=== PATIENT | female | born 1995 | race Caucasian/White ===

== ENCOUNTER 2017-11-08 18:24 | Emergency (ER) | payer OTHER ==
[2017-11-08 18:33] VITALS: BP 109/76; PULSE 118; RESP 20; TEMP 98.1; O2SAT 93
--- NOTE | 2017-11-08 19:07 | EDPHY ---
H & P Stated Complaint: right foot pain-stepped on glass a couple weeks ago? Time Seen by Provider: 11/08/17 18:57 HPI/ROS: CHIEF COMPLAINT: Right foot pain HISTORY OF PRESENT ILLNESS: Patient is a 22-year-old female who comes to the emergency department with right foot pain. She states that she thinks she stepped on a piece of glass or rock a week ago. She does not remember but she was walking barefoot. She states that she wore sandals for few days but has not been wearing any shoes for the last 2 days because "my friends stole them". She denies recent trauma. She denies fevers. She denies ankle or knee pain. The pain is just at the base of her 2nd digit on the palmar aspect. REVIEW OF SYSTEMS: Constitutional: denies: chills, fever, recent illness, recent injury EENTM: denies: blurred vision, double vision, nose congestion Respiratory: denies: cough, shortness of breath Cardiac: denies: chest pain, irregular heart rate, lightheadedness, palpitations Gastrointestinal/Abdominal: denies: abdominal pain, diarrhea, nausea, vomiting, blood streaked stools Genitourinary: denies: dysuria, frequency, hematuria, pain Musculoskeletal: denies: joint pain, muscle pain Skin: See HPI Neurological: denies: headache, numbness, paresthesia, tingling, dizziness, weakness Hematologic/Lymphatic: denies: blood clots, easy bleeding, easy bruising Immunologic/allergic: denies: HIV/AIDS, transplant EXAM: GENERAL: Well-appearing, well-nourished and in no acute distress. HEAD: Atraumatic, normocephalic. EYES: Pupils equal round and reactive to light, extraocular movements intact, sclera anicteric, conjunctiva are normal. ENT: TMs normal, nares patent, oropharynx clear without exudates. Moist mucous membranes. NECK: Normal range of motion, supple without lymphadenopathy or JVD. LUNGS: Breath sounds clear to auscultation bilaterally and equal. No wheezes rales or rhonchi. HEART: Regular rate and rhythm without murmurs, rubs or gallops. ABDOMEN: Soft, nontender, normoactive bowel sounds. No guarding, no rebound. No masses appreciated. BACK: No CVA tenderness, no spinal tenderness, step-offs or deformities EXTREMITIES: Patient has a small abscess verses blister with surrounding erythema to the palmar aspect of her right foot. It is at the base of the 2nd MTP. It is tender and raised. NEUROLOGICAL: Cranial nerves II through XII grossly intact. Normal speech, normal gait. 5/5 strength, normal movement in all extremities, normal sensation PSYCH: Normal mood, normal affect. SKIN: Warm, dry, normal turgor, no visible rashes or lesions. Source: Patient Exam Limitations: No limitations - Personal History LMP (Females 10-55): 1-7 Days Ago Current Tetanus/Diphtheria Vaccine: Yes Current Tetanus Diphtheria and Acellular Pertussis (TDAP): Yes Tetanus Vaccine Date: < 10 years - Medical/Surgical History Hx Asthma: No Hx Chronic Respiratory Disease: No Hx Diabetes: No Hx Cardiac Disease: No Hx Renal Disease: No Hx Cirrhosis: No Hx Alcoholism: No Hx HIV/AIDS: No Hx Splenectomy or Spleen Trauma: No Other PMH: denies - Family History Significant Family History: No pertinent family hx - Social History Smoking Status: Current every day smoker Alcohol Use: Occasionally Drug Use: Marijuana Constitutional: Initial Vital Signs Temperature (C) 36.7 C 11/08/17 18:31 Heart Rate 118 H 11/08/17 18:31 Respiratory Rate 20 11/08/17 18:31 Blood Pressure 109/76 11/08/17 18:31 O2 Sat (%) 93 11/08/17 18:31 O2 Delivery Mode Room Air Allergies/Adverse Reactions: No Known Allergies Allergy (Verified 11/08/17 18:30) Home Medications: Medication Instructions Recorded Cephalexin [Keflex] 500 mg PO TID #21 cap 11/08/17 Medical Decision Making Procedures: Procedure: Abscess drainage. The patient's wound on right foot. I obtained verbal consent from the patient to un roof the infection who was informed about the possibility of bleeding and pain. The wound was incised with an 11 blade scalpel and small amount of purulence drainage was expressed. I small glass foreign body was removed. I irrigated the wound. The patient tolerated the procedure well. The procedure was performed by myself. ED Course/Re-evaluation: Piece of glass is removed. I will start her on Keflex because of the surrounding erythema and slight streaking. She is happy with this plan. Her wound was cleaned and dressed. We discussed the importance of wearing shoes. She states that she can possum from her friend. Will give her socks. Discussed indications for returning. Differential Diagnosis: Partial list of the Differential diagnosis considered include but were not limited to; foreign body, abscess, blister and although unlikely based on the history and physical exam, I also considered tendon injury, joint infection, osteomyelitis. I discussed these differential diagnoses and the plan with the patient as well as the usual and expected course. The patient understands that the diagnosis is provisional and that in medicine we are not always correct and that further workup is often warranted. Usual and customary warnings were given. All of the patient's questions were answered. The patient was instructed to return to the emergency department should the symptoms at all worsen or return, otherwise to followup with the physician as we discussed. - Data Points Medications Given: Discontinued Medications Cephalexin HCl (Keflex) 500 mg PO EDNOW ONE PRN Reason: Protocol Stop: 11/08/17 19:41 Last Admin: 11/08/17 19:52 Dose: 500 mg Departure - Departure Disposition: Home, Routine, Self-Care Clinical Impression: Penetrating foreign body of skin of right foot Qualifiers: Encounter type: initial encounter Qualified Code(s): S91.341A - Puncture wound with foreign body, right foot, initial encounter Condition: Fair Instructions: Soft Tissue Foreign Body (ED) Referrals: Nii ABDALLA [Primary Care Provider] - 2-3 days, call for appt. Prescriptions: Cephalexin [Keflex] 500 mg PO TID #21 cap
[2017-11-08] MEDS ORDERED: CEPHALEXIN 500 MG CAP PO ONE (19:40)
== END 2017-11-08 20:23 | disposition home or self-care (01) ==
DX: S91.341A Puncture wound with foreign body, right foot, initial encounter (principal); F17.200 Nicotine dependence, unspecified, uncomplicated; W25.XXXA Contact with sharp glass, initial encounter

== ENCOUNTER 2017-12-31 07:43 | Emergency (ER) | payer SELFPAY ==
--- NOTE | 2017-12-31 08:10 | EDPHY ---
General Time Seen by Provider: 12/31/17 08:03 Narrative: CHIEF COMPLAINT: Fall, left rib pain HISTORY OF PRESENT ILLNESS: Patient presents with complaints of left rib pain status post fall. She said she slipped in the shower 2 weeks ago, striking her left ribs on the side of the tub. She said she also lost consciousness at the. She did not seek any medical attention until today. She has moderate to severe pain on the left anterior ribs below her breast. Worse with palpation,, inspiration. She reports no position of comfort. No shortness of breath or cough that she does have difficulty taking a deep breath due to the pain. No fever. No extremity pain. No headache, neck pain, abdominal pain or injuries elsewhere. No other associated complaints or modifying factors. PCP: currently none REVIEW OF SYSTEMS: Ten systems reviewed and are negative unless otherwise noted in the HPI PAST MEDICAL HISTORY: Uncomplicated medical history. Currently being treated for infected wisdom teeth eruption with planned extraction after antibiotic therapy PAST SURGICAL HISTORY: No recent surgeries SOCIAL HISTORY: Nonsmoker. Lives here independently. Currently looking for employment FAMILY HISTORY: Noncontributory EXAMINATION General Appearance: Alert, no distress HEENT: Normocephalic and atraumatic. Pupils equal round reactive. EOM symmetric. Neck: Supple nontender. No midline tenderness. No crepitus. No step-off or deformity. Painless range in all planes. Cardiovascular: Tachycardic rate at 108 beats per minute. Regular rhythm. No murmur. Symmetric radial pulses 2+. Respiratory: Splinting with inspiration. There is tenderness of the left anterior ribs without crepitus or paradoxical movements. The lungs are auscultated in all cortes. Neurological: GCS 15. A&O, sensory symmetric, strength is 5/5 in upper and lower extremity symmetrically. Skin: Warm and dry, multiple tattoos. Extremities: Nontender, no pedal edema. Moving all 4 extremities spontaneously and symmetrically Psychiatric: Mood and affect normal DIFFERENTIAL DIAGNOSES: Including but not limited to rib contusion, rib fracture, strain, sprain, contusion, PE, pulmonary contusion, pneumonia, atelectasis MDM: 8:10 a.m. Blunt trauma to the left ribs 2 weeks ago with tenderness of the anterior axillary line. She does exhibit some splinting with inspiration. There is no ecchymosis or paradoxical movements. Her lungs are auscultated in all cortes. I have ordered chest x-ray as the patient would like to know if she broke a rib or not. I discussed the risks, benefits and alternatives of clinical diagnosis versus radiation exposure and she would like to proceed with the x-ray. 9:00 a.m. Patient re-evaluated. The x-ray of the chest has been read as negative by radiologist for any acute fracture abnormality. At this time the patient mention that she is also concern for the possibility of sexually transmitted infection. She says she has had some discharge and some mild swelling of her labia. She does not want a pelvic exam but she does want to be tested for sexually transmitted infection. She will provide urine sample for this. Additionally her heart rate remains tachycardic. While her pain does appear to be reproducible, she is perc positive and does have recent travel, thus I have ordered a D-dimer to rule out PE. She was at 1st reluctant to have the IV placed, but after further discussion she is now comfortable this plan. 10:00 a.m. D-dimer is negative. CBC is unremarkable. HCG negative. Re-evaluated the patient. I discussed the negative D-dimer. She is still not been able to urinate, thus we will continue IV fluid. 10:50 a.m. Patient is still unable to provide a urine sample 11:40 a.m. Patient has provide a urine sample. I will treat her empirically with Rocephin and Zithromax and request. I have also provided prescription for Flagyl for the possibility of bacterial vaginosis. She does not want a pelvic exam. She would like to be discharged home. I do feel she is stable for discharge home. We discussed anti-inflammatories and muscle relaxant for the left rib injury. We discussed ED precautions for abdominal pain, pelvic pain or fever. She is comfortable this plan and has instructions to call the emergency department tomorrow for the laboratory results regarding the gonorrhea and chlamydia test. I instructed her to follow up with health department should she wish to have any further STI testing. SUPERVISION: Patient was independently examined, but I discussed the case with my secondary supervising physician Dr. Castro ED Precautions: Worsening pain. Erythema, edema, cyanosis, pallor, paresthesia or anesthesia. - Diagnostics Imaging Results: Imaging Impressions Chest X-Ray 12/31/17 08:11 Impression: No post traumatic abnormality identified. - History Smoking Status: Former smoker - Objective Vital Signs: Initial Vital Signs Temperature (C) 98.6 F 12/31/17 07:50 Heart Rate 128 H 12/31/17 07:50 Respiratory Rate 16 12/31/17 07:50 Blood Pressure 101/75 12/31/17 07:50 O2 Sat (%) 93 12/31/17 07:50 O2 Delivery Mode Room Air Allergies/Adverse Reactions: No Known Allergies Allergy (Verified 12/31/17 07:49) Home Medications: Medication Instructions Recorded Cyclobenzaprine [Flexeril 10 MG 10 mg PO TID PRN #15 tab 12/31/17 (*)] Penicillin VK 12/31/17 metroNIDAZOLE [Flagyl 500 mg (*)] 500 mg PO BID #14 tab 12/31/17 Laboratory Results: Laboratory Results 12/31/17 09:19 12/31/17 12/31/17 12/31/17 09:35 09:35 09:19 WBC RBC Hgb Hct MCV MCH MCHC RDW Plt Count D-Dimer Beta HCG, Qual NEGATIVE Urine Color JELANI Urine Appearance MODERATELY TURBID Urine pH 5.0 (5.0-7.5) Ur Specific [place] 1.025 (1.002-1.030) Urine Protein NEGATIVE (NEGATIVE) Urine Ketones NEGATIVE (NEGATIVE) Urine Blood NEGATIVE (NEGATIVE) Urine Nitrate NEGATIVE (NEGATIVE) Urine Bilirubin NEGATIVE (NEGATIVE) Urine Urobilinogen 4.0 EU H EU (0.2-1.0) Ur Leukocyte Esterase TRACE H (NEGATIVE) Urine RBC 1-3 /hpf /hpf (0-3) Urine WBC 3-5 /hpf H /hpf (0-3) Ur Epithelial Cells 1+ /lpf /lpf (NONE-1+) Hyaline Casts 1-5 /lpf /lpf (0-1) Urine Mucus 4+ /lpf H /lpf (NONE-1+) Urine Glucose NEGATIVE (NEGATIVE) N.gonorrhoeae RNA (TMA) Pending 12/31/17 12/31/17 09:19 09:19 WBC 3.59 10^3/uL L 10^3/uL (3.80-9.50) RBC 4.42 10^6/uL 10^6/uL (4.18-5.33) Hgb 13.9 g/dL g/dL (12.6-16.3) Hct 42.6 % % (38.0-47.0) MCV 96.4 fL fL (81.5-99.8) MCH 31.4 pg pg (27.9-34.1) MCHC 32.6 g/dL g/dL (32.4-36.7) RDW 13.8 % % (11.5-15.2) Plt Count 385 10^3/uL 10^3/uL (150-400) D-Dimer 0.43 ug/mLFEU ug/mLFEU (0.00-0.50) Beta HCG, Qual Urine Color Urine Appearance Urine pH Ur Specific [place] Urine Protein Urine Ketones Urine Blood Urine Nitrate Urine Bilirubin Urine Urobilinogen Ur Leukocyte Esterase Urine RBC Urine WBC Ur Epithelial Cells Hyaline Casts Urine Mucus Urine Glucose N.gonorrhoeae RNA (TMA) Medications Given: Discontinued Medications Azithromycin (Zithromax) 1,000 mg PO EDNOW ONE PRN Reason: Protocol Stop: 12/31/17 11:45 Last Admin: 12/31/17 11:50 Dose: 1,000 mg Ceftriaxone Sodium (Rocephin Im Syringe) 250 mg IM ONCE ONE PRN Reason: Protocol Stop: 12/31/17 11:45 Last Admin: 12/31/17 12:15 Dose: 250 mg Sodium Chloride (Ns) 1,000 mls @ 0 mls/hr IV EDNOW ONE; Wide Open PRN Reason: Protocol Stop: 12/31/17 09:07 Last Admin: 12/31/17 09:25 Dose: 1,000 mls Sodium Chloride (Ns) 1,000 mls @ 0 mls/hr IV EDNOW ONE; Wide Open PRN Reason: Protocol Stop: 12/31/17 10:23 Last Admin: 12/31/17 10:26 Dose: 1,000 mls Departure - Departure Disposition: Home, Routine, Self-Care Clinical Impression: Vulvodynia Contusion of rib on left side Qualifiers: Encounter type: initial encounter Qualified Code(s): S20.212A - Contusion of left front wall of thorax, initial encounter Condition: Good Instructions: Cyclobenzaprine (By mouth), Metronidazole (By mouth), Sexually Transmitted Diseases (ED), Safe Sex (ED), Rib Contusion (ED) Additional Instructions: 1. Aleve [id number], 2 pills by mouth every 12 hr for the next 7-10 days and stop 2. Flexeril as prescribed as needed for left-sided rib pain and muscle spasm 3. Flagyl as prescribed to completion 4. You have pending test regarding your urine samples. Please call us Tuesday or Tuesday for the results of these test at [phone] Referrals: NONE *PRIMARY CARE P,. [Primary Care Provider] - As per Instructions Naseem Flores MD [place] [place] - As per Instructions Prescriptions: Cyclobenzaprine [Flexeril 10 MG (*)] 10 mg PO TID PRN #15 tab PRN Reason: Spasms metroNIDAZOLE [Flagyl 500 mg (*)] 500 mg PO BID #14 tab
[2017-12-31] MEDS ORDERED: NS 1,000 ML IV ONE ×2 (09:06→10:22)
[2017-12-31] MEDS ORDERED: AZITHROMYCIN 250 MG TAB PO ONE (11:44)
[2017-12-31 12:14] VITALS: BP 133/75
== END 2017-12-31 12:28 | disposition home or self-care (01) ==
DX: S20.212A Contusion of left front wall of thorax, initial encounter (principal); E86.9 Volume depletion, unspecified; N94.819 Vulvodynia, unspecified; Z87.891 Personal history of nicotine dependence; W18.2XXA Fall in (into) shower or empty bathtub, initial encounter; Y99.8 Other external cause status; Y93.89 Activity, other specified
CPT/HCPCS: J0696

== ENCOUNTER 2018-01-25 20:08 | Emergency (ER) | payer OTHER ==
[2018-01-25] MEDS ORDERED: NS 1,000 ML IV ONE ×2 (20:09→21:22)
[2018-01-25] MEDS ORDERED: LORazepam 1 MG TAB PO ONE (20:09)
--- NOTE | 2018-01-25 20:14 | EDPHY ---
General - History Smoking Status: Former smoker Time Seen by Provider: 01/25/18 20:11 Narrative: 1:47 a.m.- Patient now awake and more alert. Heart rate is normal. Her father is here and can take her home. She will be discharged. (Jennifer Uribe) CHIEF COMPLAINT: "found in a pineda" HISTORY OF PRESENT ILLNESS: Patient arrives by EMS and is seen at time of arrival. They report that the patient was "found in a [place]." EMS reports that a bystander contacted them after the patient was reportedly found in a p[place]a, laying down on her face. The patient does not know how she got there. She has no complaints of pain or headache. She says "I don't why I was there." She admits to ingestion of "jeff " earlier this week but denies ingestion of any substances or alcohol today. She has no complaints of trauma. No pain anywhere on her person. She denies any complaints at this time. REVIEW OF SYSTEMS: Ten systems reviewed and are negative unless otherwise noted in the HPI PCP: None SPECIALISTS: None PAST MEDICAL HISTORY: "had a seizure once" PAST SURGICAL HISTORY: Denies any surgeries SOCIAL HISTORY: Admits to occasional tobacco and alcohol use. Admits to occasional my ecstasy use. FAMILY HISTORY: Noncontributory EXAMINATION General Appearance: Alert, no distress. Well-developed well-nourished. Unkempt Head: normocephalic, atraumatic Eyes: Pupils equal and round but are dilated significantly. no conjunctival pallor or injection ENT, Mouth: Mucous membranes moist Neck: Normal inspection, supple, non-tender Respiratory: Lungs are clear to auscultation Cardiovascular: Tachycardic rate. Regular rhythm. No murmur. Gastrointestinal: Abdomen is soft and nontender Back: non-tender, no bony abnormalities Neurological: GCS 15. Alert to person, place and time. Disoriented to scenario. No focal deficits with symmetric strength and no pronator drift. She has a normal steady gait without ataxia. Normal [id number]. Skin: Warm and dry, no rash. Multiple bruises about her arms and legs in various stages of healing. Extremities: Nontender, no pedal edema. Symmetric range of motion of all 4 extremities Psychiatric: Mood and affect normal DIFFERENTIAL DIAGNOSES: Including but not limited to chemical ingestion, illicit substance use, polysubstance use, seizure, postictal state MDM: 8:05 p.m. Uncertain etiology with possible chemical ingestion. The patient is tachycardic but she is awake and alert to person and place. She does not recall the exact details of the event that preceded her being found in a p[place]a. She has no complaints of pain. She is ambulatory or difficulty. She does have moderate tachycardia but her pressure is within normal limits. I have ordered laboratory studies, urinalysis, IV fluid and IV Ativan. She has consented to this thus far. I discussed with Dr. Johns. 9:00 p.m. Patient re-evaluated. She still tachycardic and receiving IV fluid. Laboratory studies thus far unremarkable. Her drug screen is positive for benzodiazepine and cocaine 9:50 p.m. Patient re-evaluated. She is still tachycardic but somewhat improved. She still received IV fluid. She is in no acute distress. 10:50 p.m. Patient re-evaluated. Patient's heart rate is 145 beats per minute. She appears to be hallucinating as she is asking where her friend was it was sitting next to her. She has not had any visitors. She seems to be intermittently hallucinating and I have notified Dr. Johns of this. The possibility of status epilepticus versus DTs versus chemical ingestion that is hallucinatory. I placed her on a detained or and we will obtain CT scan of the head, recheck her temperature, administer thiamine and folate. Dr. Johns is currently examining her. 11:[address] Johns has examine the patient. Please see her documentation for further details. She agrees with the need for further care. 11:[address] of the head is negative as notified by radiologist Dr. Barth. 12:00 a.m. Patient re-evaluated. Her alcohol level is negative, magnesium is normal, she is afebrile and we are continue to monitor. At this time Dr. Johns has signed the attending position over to Dr. Uribe 12:55 a.m. At this time, Dr. Uribe will assume care of the patient. At this time the patient is resting. Her heart rate continues to improve. Please see the note of Dr. Uribe for further care final disposition. At this time the father is at bedside as well. EKG interpretation: Dr. Johns SUPERVISION: Patient was evaluated and examined in conjunction with my secondary supervising physician as documented. We have both examined the patient. (Clive Rock) Discussion: I evaluated and participated in the management of the patient. My co-signature indicates that I have reviewed this chart and I agree with thefindings and plan of care as documented. My personal H&P findings include: 22 year old female presenting after being found with AMS. Unclear of the events preceding ED evaluation. Patient without trauma on evaluation and without pain. Of concern, patient tachycardic on arrival with dilated pupils. Her tachycardia has worsened since arrival and she began to have hallucinations. Heart: regular tachycardic. Lungs: CTA. Alert, conversant, but unable to recall earlier details. Afebrile. Denies hallucinogens. Fluids administered, EKG demonstrates only sinus tachy. Urine tox with benzo and marijuana only. HR gradually declining into the [address] Uribe assuming care. Plan for fluids, time, and repeat evaluations. (Elvira Johns) - Objective Vital Signs: Initial Vital Signs Temperature (C) 36.9 C 01/25/18 20:23 Heart Rate 131 H 01/25/18 20:23 Respiratory Rate 16 01/25/18 20:23 Blood Pressure 138/95 H 01/25/18 20:23 O2 Sat (%) 100 01/25/18 20:23 O2 Delivery Mode Room Air Allergies/Adverse Reactions: No Known Allergies Allergy (Verified 12/31/17 07:49) Home Medications: Medication Instructions Recorded Cyclobenzaprine [Flexeril 10 MG 10 mg PO TID PRN #15 tab 12/31/17 (*)] Penicillin VK 12/31/17 metroNIDAZOLE [Flagyl 500 mg (*)] 500 mg PO BID #14 tab 12/31/17 Laboratory Results: Laboratory Results 01/25/18 20:17 01/25/18 20:17 Medications Given: Discontinued Medications Chlordiazepoxide HCl (Librium) 25 mg PO EDNOW ONE Stop: 01/25/18 23:09 Last Admin: 01/25/18 23:11 Dose: 25 mg Folic Acid (Folic Acid) 1 mg PO EDNOW ONE Stop: 01/25/18 22:54 Last Admin: 01/25/18 23:00 Dose: 1 mg Sodium Chloride (Ns) 1,000 mls @ 0 mls/hr IV ONCE ONE; Wide Open PRN Reason: Protocol Stop: 01/25/18 20:10 Last Admin: 01/25/18 20:21 Dose: 1,000 mls Sodium Chloride (Ns) 1,000 mls @ 0 mls/hr IV EDNOW ONE; Wide Open PRN Reason: Protocol Stop: 01/25/18 21:23 Last Admin: 01/25/18 21:36 Dose: 1,000 mls Ibuprofen (Motrin) 800 mg PO EDNOW ONE Stop: 01/26/18 01:57 Last Admin: 01/26/18 02:00 Dose: 800 mg Levetiracetam (Keppra) 500 mg PO EDNOW ONE Stop: 01/25/18 22:54 Last Admin: 01/25/18 23:01 Dose: 500 mg Lorazepam (Ativan) 1 mg PO EDNOW ONE Stop: 01/25/18 20:10 Last Admin: 01/25/18 20:22 Dose: Not Given Lorazepam (Ativan Injection) 1 mg IVP EDNOW ONE Stop: 01/25/18 20:24 Last Admin: 01/25/18 20:28 Dose: 1 mg Lorazepam (Ativan Injection) 1 mg IVP EDNOW ONE Stop: 01/25/18 22:16 Last Admin: 01/25/18 22:28 Dose: 1 mg Ondansetron HCl (Zofran) 4 mg IVP EDNOW ONE Stop: 01/25/18 20:24 Last Admin: 01/25/18 20:29 Dose: 4 mg Thiamine HCl (Vitamin B-1) 100 mg PO EDNOW ONE Stop: 01/25/18 22:54 Last Admin: 01/25/18 23:01 Dose: 100 mg Departure - Departure Disposition: Home, Routine, Self-Care Clinical Impression: Hallucinogen use, Seizure disorder Condition: Good Instructions: Polysubstance Abuse (ED) Referrals: Patient,NotPresent [Unknown] - As per Instructions
--- NOTE | 2018-01-25 20:16 | CPEKG ---
Heart Rate: 117 RR Interval: 513 P-R Interval: 164 QRSD Interval: 82 QT Interval: 324 QTC Interval: 452 P [place]: 46 QRS [place]: 60 T Wave [place]: 21 EKG Severity - BORDERLINE ECG - EKG Impression: SINUS TACHYCARDIA EKG Impression: PROBABLE LEFT ATRIAL ABNORMALITY Electronically Signed By: Elvira Johns 26-Jan-2018 00:01:36
[2018-01-25] MEDS ORDERED: ONDANSETRON 4 MG/2 ML VIAL ONE (20:20)
[2018-01-25] MEDS ORDERED: LORazepam 2 MG/ML INJ ONE (20:20)
[2018-01-25] MEDS ORDERED: LORazepam 2 MG/ML INJ IVP ONE ×2 (20:23→22:15)
[2018-01-25] MEDS ORDERED: ONDANSETRON 4 MG/2 ML VIAL IVP ONE (20:23)
[2018-01-25 20:24] LABS: PLATELET COUNT 118 10^3/uL (150-400)
[2018-01-25] MEDS ORDERED: levETIRAcetam 500 MG TAB PO ONE (22:53)
[2018-01-25] MEDS ORDERED: THIAMINE HCL 100 MG TAB PO ONE (22:53)
[2018-01-25] MEDS ORDERED: FOLIC ACID 1 MG TAB PO ONE (22:53)
[2018-01-25] MEDS ORDERED: chlordiazePOXIDE 25 MG CAP PO ONE (23:08)
[2018-01-26 00:15] LABS: CREATINE KINASE 222 IU/L (0-156)
[2018-01-26] MEDS ORDERED: IBUPROFEN 800 MG TAB PO ONE (01:56)
[2018-01-26 02:05] VITALS: BP 117/79
[2018-01-26 07:14] LABS: INR 1.01 (0.83-1.16); PROTIME(PATIENT) 13.5 SEC (12.0-15.0)
== END 2018-01-26 02:06 | disposition home or self-care (01) ==
DX: F16.90 Hallucinogen use, unspecified, uncomplicated (principal); G40.909 Epilepsy, unspecified, not intractable, without status epilepticus; E86.9 Volume depletion, unspecified; Z87.891 Personal history of nicotine dependence
CPT/HCPCS: 80305; 96374; G0480; J2060; J2405

== ENCOUNTER 2018-05-27 22:28 | Emergency (ER) | payer OTHER ==
--- NOTE | 2018-05-27 22:30 | EDPHY ---
H & P Source: Patient - Personal History Tetanus Vaccine Date: < 10 years - Medical/Surgical History Hx Asthma: No Hx Chronic Respiratory Disease: No Hx Diabetes: No Hx Cardiac Disease: No Hx Renal Disease: No Hx Cirrhosis: No Hx Alcoholism: No Hx HIV/AIDS: No Hx Splenectomy or Spleen Trauma: No Other PMH: seizure - Social History Smoking Status: Never smoked Time Seen by Provider: 05/27/18 22:30 HPI/ROS: HPI CHIEF COMPLAINT: M1 hold by police. Suicidal ideation. HISTORY OF PRESENT ILLNESS: 23-year-old female presents emergency room by police on M1 home. Here for suicidal ideation. She apparently called the crisis line stating that she was suicidal. Contacted local police. The police picked her up. Patient presents emergency room intoxicated with alcohol. Past Medical History: History of depression and anxiety. Past Surgical History: No recent surgery. Social History: Frequent alcohol use. Also uses Xanax. Family History: Noncontributory ROS REVIEW OF SYSTEMS: 10 Systems were reviewed and negative with the exception of the elements mentioned in the history of present illness. Exam Constitutional triage nursing summary reviewed, vital signs reviewed, awake/ alert. Eyes normal conjunctivae and sclera, EOMI, PERRLA. HENT normal inspection, atraumatic, moist mucus membranes, no epistaxis, neck supple/ no meningismus, no raccoon eyes. Respiratory clear to auscultation bilaterally, normal breath sounds, no respiratory distress, no wheezing. Cardiovascular rate normal, regular rhythm, no murmur, no edema, distal pulses normal. Gastrointestinal soft, non-tender, no rebound, no guarding, normal bowel sounds, no distension, no pulsatile mass. Genitourinary no CVA tenderness. Musculoskeletal no midline vertebral tenderness, full range of motion, no calf swelling, no tenderness of extremities, no meningismus, good pulses, neurovascularly intact. Skin pink, warm, & dry, no rash, skin atraumatic. Neurologic awake, alert and oriented x 3, AAOx3, moves all 4 extremities equally, motor intact, sensory intact, CN II-XII intact, normal cerebellar, normal vision, normal speech. Psychiatric normal mood/affect. Heme/Lymph/Immune no lymphadenopathy. Differential Diagnosis: Includes but is not limited to in a particular order acute alcohol intoxication, depression, mood disorder, bipolar disorder, anxiety Medical Decision Making: Plan for this patient she is on M1 hold. Patient will need blood draw for medical clearance and then mental health evaluation. Re-evaluation: 0632AM: Patient signed over to Dr. Canales 7am. Patient sobering from acute alcohol intoxication. Once sober patient will need mental health evaluation. (Amauri Lewis) Constitutional: Initial Vital Signs Temperature (C) 36.7 C 05/27/18 22:30 Heart Rate 111 H 05/27/18 22:30 Respiratory Rate 16 05/27/18 22:30 Blood Pressure 130/99 H 05/27/18 22:30 O2 Sat (%) 93 05/27/18 22:30 O2 Delivery Mode Room Air Allergies/Adverse Reactions: No Known Allergies Allergy (Verified 04/02/18 03:38) Home Medications: Medication Instructions Recorded NK [No Known Home Meds] 04/02/18 Medical Decision Making ED Course/Re-evaluation: Patient has been evaluated and felt to need inpatient psychiatric management. She has been accepted at [facility] psychiatric facility. (Ant Canales) - Data Points Laboratory Results: Laboratory Results 05/28/18 00:40 05/28/18 00:40 05/28/18 05/28/18 05/28/18 00:40 00:40 00:40 WBC 4.69 10^3/uL 10^3/uL (3.80-9.50) RBC 4.76 10^6/uL 10^6/uL (4.18-5.33) Hgb 15.7 g/dL g/dL (12.6-16.3) Hct 46.2 % % (38.0-47.0) MCV 97.1 fL fL (81.5-99.8) MCH 33.0 pg pg (27.9-34.1) MCHC 34.0 g/dL g/dL (32.4-36.7) RDW 12.4 % % (11.5-15.2) Plt Count 299 10^3/uL 10^3/uL (150-400) MPV 7.8 fL L fL (8.7-11.7) Neut % (Auto) 49.5 % % (39.3-74.2) Lymph % (Auto) 37.3 % % (15.0-45.0) Mcnairy % (Auto) 8.3 % % (4.5-13.0) Eos % (Auto) 3.4 % % (0.6-7.6) Baso % (Auto) 1.1 % % (0.3-1.7) Nucleat RBC Rel Count 0.0 % % (0.0-0.2) Absolute Neuts (auto) 2.32 10^3/uL 10^3/uL (1.70-6.50) Absolute Lymphs (auto) 1.75 10^3/uL 10^3/uL (1.00-3.00) Absolute Monos (auto) 0.39 10^3/uL 10^3/uL (0.30-0.80) Absolute Eos (auto) 0.16 10^3/uL 10^3/uL (0.03-0.40) Absolute Basos (auto) 0.05 10^3/uL 10^3/uL (0.02-0.10) Absolute Nucleated RBC 0.00 10^3/uL 10^3/uL (0-0.01) Immature Gran % 0.4 % % (0.0-1.1) Immature Gran # 0.02 10^3/uL 10^3/uL (0.00-0.10) Sodium 145 mEq/L mEq/L (135-145) Potassium 4.3 mEq/L mEq/L (3.3-5.0) Chloride 105 mEq/L mEq/L (97-110) Carbon Dioxide 29 mEq/l mEq/l (22-31) Anion Gap 11 mEq/L mEq/L (8-16) BUN 4 mg/dL L mg/dL (7-23) Creatinine 0.6 mg/dL mg/dL (0.6-1.0) Estimated GFR > 60 Glucose 97 mg/dL mg/dL (70-100) Calcium 9.4 mg/dL mg/dL (8.5-10.4) Beta HCG, Qual NEGATIVE Ethyl Alcohol 281 mg/dL H mg/dL (0-10) Medications Given: Discontinued Medications Alprazolam (Xanax) 1 mg PO EDNOW ONE Stop: 05/28/18 08:37 Last Admin: 05/28/18 09:10 Dose: 1 mg Departure - Departure Disposition: Other Psych, Not [facility] Clinical Impression: Alcohol intoxication, Suicidal ideation Condition: Good Instructions: Alcohol Intoxication (ED) Referrals: NONE *PRIMARY CARE P,. [Primary Care Provider] - As per Instructions
[2018-05-28 01:01] LABS: PLATELET COUNT 299 10^3/uL (150-400)
[2018-05-28] MEDS ORDERED: ALPRAZolam 0.25 MG TAB PO ONE (08:36)
--- NOTE | 2018-05-28 08:44 | ASMTTLCEVL ---
[facility] Evaluation - Basic Information Evaluation Start Date and 05/28/2018 07:00 AM Time Hospital Status Answers: M1 Hold 72-hr M1 Hold Start Date 05/27/2018 10:24 PM and Time Patient statement Notes: " I called [facility] or something, a psych facility. I felt like I was loosing a sense of reality. The police showed up and forced me to come here." Narrative Notes: Pt is a 23 year old female, unmarried, [employer] student who presented with BPD on an M1 that read, " r/o contacted Can because she called a crisis line. 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 Can had consumed 5 shots of liquor and 2 xanax. Can stated she was depressed and needs help. Can has no plan of suicide but has thoughts. Can is a danger to self and cannot keep herself safe." Pt states last night she made an appointment with a mental health facility (she can't remember the name) for an evaluation but stated she did not feel like she was in crisis. Pt stated, " I watched a film, Girl interrupted and thought, " Damn, I'm going crazy." Pt stated she feels she "needs something, maybe inpatient." Pt stated last night, " A lot was going on that didin't make sense and I was questioning whether things were real or not." When asked how long she has been feeling this way, pt responded, " I've always been this way." This journalists and other writers spoke with pt's father who stated he believes pt has been struggling with depression and excessive drinking and drug use. Last December, pt was found unconscious intoxicated with bruises by a [place] and taken to the hospital. Father stated when he picked her up from the hospital, pt was indifferent about what happened and did not feel like it was a big deal. Father reported that pt has told him she feels depressed. Father also stated pt is failing her classes at school. Pt denies SI/plan/Intent but reported feeling depressed. When this journalists and other writers asked pt to describe what her depression felt like to her, pt stated, " Not wanting to go to bed, not wanting to do anything and feeling sad." Pt appeared to this journalists and other writers as indifferent and guarded throughout the evaluation. Diagnosis History Notes: Pt reports a hx of anxiety. Prior suicide attempts Notes: Pt denied any prior suicide attempts or self harming behaviors. Prior hospitalizations Notes: Pt denies any prior hospitalizations but has had multiple visits to [facility] for alcohol intoxication. Treatment Responses Notes: Unknown History of violence Notes: Pt denied any hx of violence. Therapist: None Psychiatrist: Pt reported she went to [facility] once and saw a psychiatrist. Medications (name, dosage, route, freq uency) Notes: Xanax 2mg once a day. Pt states sometimes she takes more than 2mg. Allergies/Reaction Notes: Nka Sleep Notes: Pt stated, " I sleep all the time." Appetite Notes: Pt stated a decrease in appetite. Medical/Surgical history Notes: None reported Substance use history (frequency, intensity, his tory, duration) Notes: Pt reported she drinks alcohol, " Anytime I get the chance." Pt stated she drinks every weekend and drinks to the point of intoxication. Pt reports she usually drinks about 6 shots of liquor Pt reports she also does cocaine, LSD, MDMA and mushrooms Pt states she does these drugs, "occasionally." Pt reports she also abuses benzo's. 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 Family composition Notes: Pt reports her mother is addicted to heroin and she is not in contact with her. Her father lives in [place]. Pt reports she has 1 older brother and an older sister. Need for family Answers: No participation in patient's care Family psychiatric/substance abuse history Notes: Pt reports her mother is a heroin addict. Pt's father reported pt has a cousin who committed suicide this past August. Pt's has another cousin who , "mysteriously." They suspect it was drug related. Developmental history Notes: Pt grew up in [place] with both parents until she was in 8th grade. Her mother then left for [place] for a job. Pt denied a hx of adhd. Pt denied any concussions. Abuse concerns Answers: None Marital status/children Notes: Pt is unmarried, no children. Living situation Notes: Pt lives in a house with a roommate in [place]. Sexual history/orientation Notes: Heterosexual Peer support/family strengths Notes: Pt responded, "yeah," and declined to provide further information. 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 Pt reports she is doing well in school but pt's father reports she is failing her classes. Work history Notes: Pt is not working. Notes: None Legal Notes: Pt denied any legal problems. Mandaeism/Spiritual Notes: None that would interfere with tx. Leisure Notes: Pt stated, "not much." Collateral Notes: Father-Edd Patient's strengths Answers: Intelligent (Please select at least TWO strengths): Supportive Family TLC Evaluation - Mental Status Exam Appearance: Answers: Appropriate Eye Contact: Answers: Avoiding Mood: Answers: Euthymic Affect: Answers: Guarded Indifferent Behavior: Answers: Cooperative Guarded Speech: Answers: Relevant Logical Clear Thought Process: Answers: Organized Oriented Alert Insight: Answers: Poor Judgement: Answers: Poor Depression Answers: Difficulty Concentrating Signs/Symptoms: Diminished Interest Diminished Pleasure Psychomotor Retardation Anxiety Signs/Symptoms Answers: Generalized Anxiety Panic Attacks Hallucinations: Answers: None Current Stage of Change Answers: Precontemplation Pt reported to have Answers: No suicidal/self-injuring ideation/behavior? Pt reported to be making Answers: Yes suicidal/self-injuring threats? Pt reported to have Answers: No aggression/assault ideation/behavior? Pt reported to be making Answers: No aggression/assault threats? Pt exhibits inability to Answers: No care for self/grave disability? Ideation/behavior is Answers: Yes chronic? Patient has a specific Answers: No plan? History of Answers: No suicidal/self-injuring ideation, behavior, or threats? History of Answers: No aggressive/assaultive ideation, behavior, or threats? History of serious Answers: No physical harm to self/others while in treatment setting? [facility] Evaluation - Suicide/Homicide Risk Suicide Risk Factors: Answers: < 20 or > 40 Years of Age Alcohol/Heavy Drug Use Anxiety/Panic, Severe Flat Affect School Difficulties Homicide/violence risk Answers: None factors: Current Suicidal Answers: No Ideation? Current Suicidal Ideation Answers: Yes in the Past 48 Hours? Current Suicidal Ideation Answers: Yes in the Past Month? Suicide Internal Answers: Absence of Psychosis Protective Factors: Suicide External Answers: Social Support Protective Factors: Ranking of patient's Answers: Severe suicidal risk: Ranking of patient's Answers: Low homicidal risk: TLC Evaluation - Wrap-up AXIS I Diagnosis (include DSM-V and ICD-10 codes), must also be entered in [employer], which is the source of truth. 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
--- NOTE | 2018-05-28 10:51 | ASMTTCLDSP ---
TLC Discharge Disposition Disposition: Answers: Transfer Discharge Concerns/Recommendations: Notes: In consultation with [facility] ED physician, Ant Canales MD and on-call psychiatrist, Ana Laura Hernandez MD, both concurred that pt appears to meet 27-65 criteria requiring psychiatric hospitalization as pt appears to be at risk of harm to self due to a mental illness condition. Type of Hold: Answers: M1/72-hour Hold Hold initiated by: Answers: Police For Transfers, Accepting [facility] Facility: For Transfers, Accepting Dr. Hemanth Wolff Psychiatrist: For Transfers, Reason Needs dual dx Patient is Being Transferred: Date Signed: 05/28/2018 10:51 AM Electronically Signed By:Magaly Charles
[2018-05-28 15:56] VITALS: BP 110/85
== END 2018-05-28 12:40 ==
DX: R45.851 Suicidal ideations (principal); F10.129 Alcohol abuse with intoxication, unspecified; Y90.8 Blood alcohol level of 240 mg/100 ml or more; F41.8 Other specified anxiety disorders
CPT/HCPCS: 80305; G0480